=== PATIENT | female | born 1985 | race Caucasian/White ===

== ENCOUNTER 2021-08-30 11:49 | Emergency (ER) | payer SELFPAY ==
[~2021-08-30] VITALS: Ht 167 cm; Wt 58.0 kg
[2021-08-30 12:00] VITALS: BP 119/58
--- NOTE | 2021-08-30 12:59 | ED Cough/URI ---
General Chief Complaint: Cough/Cold/Flu Symptoms Stated Complaint: CP/COUGH/WEAKNESS/BODY ACHES Nursing Triage Note: ARRIVED VIA AMB TO ROOM 10 WITH COMPLAINTS OF COUGH, BODY ACHES, AND WEAKNESS X4 DAYS. TESTED POSITIVE FOR COVID X1 MONTH AGO. HAS FELT FINE UNTIL NOW. Source: patient (GREGG BURROWS) History of Present Illness Date Seen by Provider: Aug 30, 2021 Time Seen by Provider: 12:54 Initial Comments This is a 36-year-old female that presents to the emergency room for evaluation of a cough, congestion, body aches and weakness for the last 4 days. She states that she was COVID-positive a month ago and has not had any significant issues since then. She states that her entire household has been sick with similar symptoms. She denies fever, chills Timing/Duration: week Severity/Quality: moderate Prior Episodes/Possible Cause: no prior episodes (GREGG BURROWS) Allergies and Home Medications Allergies Coded Allergies: No Known Drug Allergies (Unverified , 08/30/21) Patient Home Medication List Home Medication List Reviewed: Yes (GREGG BURROWS) Albuterol Sulfate (Proair Hfa) 1 Puff Puff, 2 PUFF IH Q4H Prescribed by: Wilbert Burrows on 08/30/21 1300 Azithromycin (Azithromycin) 250 Mg Tablet, 250 MG PO UD Prescribed by: Wilbert Burrows on 08/30/21 1300 Prednisone (Prednisone) 20 Mg Tab, 20 MG PO BID Prescribed by: Wilbert Burrows on 08/30/21 1300 Promethazine/Dextromethorphan (Promethazine-Dm Syrup) 6.25 Mg-15 Mg/5 Ml Syrup, 5 ML PO Q6H PRN for COUGH Prescribed by: Wilbert Burrows on 08/30/21 1300 Review of Systems Review of Systems Constitutional: chills, fever EENTM: nose congestion Respiratory: cough Cardiovascular: no symptoms reported Genitourinary: no symptoms reported Musculoskeletal: no symptoms reported Skin: no symptoms reported Psychiatric/Neurological: No Symptoms Reported Hematologic/Lymphatic: No Symptoms Reported (GREGG BURROWS) Past Cnlgvri-Vuflnd-Klzlml Hx Patient Social History Tobacco Use?: Yes Smoking Status: Current Everyday Smoker Substance use?: Yes Substance type: Marijuana Alcohol Use?: No (GREGG BURROWS) Past Medical History Last Menstrual Period: Aug 28, 2021 (GREGG BURROWS) Physical Exam Vital Signs - First Documented 08/30/21 12:00 Temp 36.6 Pulse 91 Resp 16 B/P (MAP) 119/58 (78) Pulse Ox 99 O2 Delivery Room Air (BARB SPAULDING MD) Capillary Refill : Less Than 3 Seconds (GREGG BURROWS) Height: '" Weight: lbs. oz. 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 tested, oriented x 3 Skin: normal color, warm/dry (GREGG BURROWS) Progress/Results/Core Measures Suspected Sepsis SIRS Temperature: Pulse: 91 Respiratory Rate: 16 Blood Pressure 119 /58 Mean: 78 (GREGG BURROWS) Results/Orders Lab Results Laboratory Tests Test 08/30/21 12:47 Range/Units Influenza Type A (RT-PCR) Not Detected Not Detecte Influenza Type B (RT-PCR) Not Detected Not Detecte SARS-CoV-2 RNA (RT-PCR) Not Detected Not Detecte (BARB SPAULDING MD) Vital Signs/I&O 08/30/21 08/30/21 12:00 13:39 Temp 36.6 Pulse 91 84 Resp 16 16 B/P (MAP) 119/58 (78) Pulse Ox 99 100 O2 Delivery Room Air Room Air (BARB SPAULDING MD) Vital Signs/I&O Capillary Refill : Less Than 3 Seconds (GREGG BURROWS) Blood Pressure Mean: 78 Departure Communication (Admissions) Patient is afebrile, nontoxic and in no distress. She does have some significant bronchitis. She was treated with steroids and a DuoNeb treatment in the emergency room and was started on antibiotics and steroids which will. No evidence or suspicion of PE, AMI, severe sepsis or other emergent condition. (GREGG BURROWS) Impression Primary Impression: Acute bronchitis Disposition: 01 HOME, SELF-CARE Condition: Stable Departure-Patient Inst. Decision time for Depature: 12:58 (GREGG BURROWS) Referrals: [facility] [place] (PCP/Family) Primary Care Physician Patient Instructions: Acute Bronchitis, Adult (DC) Scripts Promethazine/Dextromethorphan (Promethazine-Dm Syrup) 6.25 Mg-15 Mg/5 Ml Syrup 5 ML PO Q6H PRN for COUGH for 7 Days, #240 ML Prov: GREGG BURROWS 08/30/21 Prednisone (Prednisone) 20 Mg Tab 20 MG PO BID for 5 Days, #10 TAB Take 3 tabs(60mg)daily, decrease by 1/2 tab(10mg)daily. Prov: GREGG BURROWS 08/30/21 Albuterol Sulfate (PROAIR HFA) 1 Puff Puff 2 PUFF IH Q4H for Cough for 7 Days, #1 EA 1 PUFF = 90 MCG Prov: GREGG BURROWS 08/30/21 Azithromycin (Azithromycin) 250 Mg Tablet 250 MG PO UD, #6 TAB TAKE 2 TABLETS ON DAY ONE THEN TAKE 1 TABLET DAILY FOR FOUR MORE DAYS Prov: GREGG BURROWS 08/30/21 Work/School Note: Work Release Form Date Seen in the Emergency Department: Aug 30, 2021 Return to Work: Sep 01, 2021 ATTENDING PHYSICIAN NOTE: I was physically present as attending physician in the emergency department during the care of this patient, but I was not directly involved in the decision making or delivery of care for this patient. (BARB SPAULDING MD) GREGG BURROWS Aug 30, 2021 12:59 BARB SPAULDING MD Sep 01, 2021 17:50
[2021-08-30] MEDS ORDERED: AZIT250T12 PO (13:00)
[2021-08-30] MEDS ORDERED: D-ME473S11 PO (13:00)
[2021-08-30] MEDS ORDERED: PRD20T PO (13:00)
[2021-08-30] MEDS ORDERED: RT-ALBUTEROL/IPRATROPIUM 3 ML (DUONEB) VIAL INH ONE (13:00)
[2021-08-30] MEDS ORDERED: RT-ALBUINH IH (13:00)
== END 2021-08-30 13:39 | disposition home or self-care (01) ==
LOC: ER 11:52
DX: J20.9 Acute bronchitis, unspecified (principal); F17.200 Nicotine dependence, unspecified, uncomplicated; Z20.822 Contact with and (suspected) exposure to COVID-19
CPT/HCPCS: 87636; 99284

== ENCOUNTER 2021-12-05 15:54 | Emergency (ER) | payer SELFPAY ==
[~2021-12-05] VITALS: Ht 167.7 cm; Wt 63.5 kg
[~2021-12-05 15:54] MED LIST: AZIT250T12 PO; D-ME473S11 PO; PRD20T PO; RT-ALBUINH IH
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
[2021-12-05] MEDS ORDERED: IBUPROFEN 800 MG (MOTRIN) TAB PO ONE (17:00)
[2021-12-05] MEDS ORDERED: ACETAMINOPHEN 325 MG TABLET PO ONE (17:00)
--- NOTE | 2021-12-05 17:17 | Diagnostic Imaging Report ---
EXAMINATION: Left foot 3 views. HISTORY: Pain. COMPARISON: None available. FINDINGS: Alignment is normal. No fracture is seen. Joint spaces are normal. IMPRESSION: No fracture. Dictated by: Dictated on workstation # [id number]
[2021-12-05 17:42] VITALS: BP 114/75
== END 2021-12-05 17:42 | disposition home or self-care (01) ==
LOC: EDUNIT# 15:54 → ER 15:57
DX: S93.602A Unspecified sprain of left foot, initial encounter (principal); F17.210 Nicotine dependence, cigarettes, uncomplicated; Z28.311 Partially vaccinated for COVID-19; X50.1XXA Overexertion from prolonged static or awkward postures, initial encounter; Y93.55 Activity, bike riding
CPT/HCPCS: 73630